=== PATIENT | female | born 1965 | race Caucasian/White ===

== ENCOUNTER 2017-12-22 07:24 | Day surgery (SDC) | payer MEDICAID ==
[~2017-12-22] VITALS: Ht 157.5 cm; Wt 65.0 kg
[~2017-12-22 07:24] MED LIST: ANAS1TAB49 PO; OMEP20CA10 PO; SODIUM CHLORIDE 0.9% 1,000 ML IV ONE
[2017-12-22] MEDS ORDERED: LIDOCAINE HCL/PF 2% 5 ML VIAL INJ ONE (12:00)
[2017-12-22] MEDS ORDERED: EPHEDrine SULFATE 50 MG/ML VIAL IM ONE (12:00)
[2017-12-22] MEDS ORDERED: PROPOFOL 1% 20 ML VIAL IVP ONE (12:00)
== END 2017-12-22 09:50 | disposition home or self-care (01) ==
LOC: SURGERY 07:24
PROVIDERS: ATTEND Internal Medicine Gastroenterology
DX: K29.50 Unspecified chronic gastritis without bleeding (principal); E78.5 Hyperlipidemia, unspecified; K21.9 Gastro-esophageal reflux disease without esophagitis; Z85.3 Personal history of malignant neoplasm of breast; Z79.899 Other long term (current) drug therapy; Z98.890 Other specified postprocedural states
CPT/HCPCS: 43239; 88305; 88312; C1769; J2704; J3490 ×2; J7030

== ENCOUNTER 2018-10-07 13:42 | Emergency (ER) | payer MEDICAID ==
[~2018-10-07] VITALS: Ht 157.5 cm; Wt 68.2 kg
[~2018-10-07 13:42] MED LIST changes: -ANAS1TAB49 PO; +ANAS1TAB50 PO; -SODIUM CHLORIDE 0.9% 1,000 ML IV ONE
[2018-10-07 13:44] VITALS: BP 132/78
[2018-10-07] MEDS ORDERED: KETOROLAC TROMETHAMINE 30 MG/ML VIAL IM ONE (14:15)
[2018-10-07] MEDS ORDERED: LIDOCAINE 5% TRANSDERMAL PATCH TD ONE (14:15)
[2018-10-07] MEDS ORDERED: CYCLOBENZAPRINE HCL 10 MG TABLET PO ONE (14:15)
== END 2018-10-07 15:12 | disposition home or self-care (01) ==
LOC: EMS 13:43
DX: S39.012A Strain of muscle, fascia and tendon of lower back, initial encounter (principal); S16.1XXA Strain of muscle, fascia and tendon at neck level, initial encounter; Z85.3 Personal history of malignant neoplasm of breast; Z79.899 Other long term (current) drug therapy; V49.9XXA Car occupant (driver) (passenger) injured in unspecified traffic accident, initial encounter; Y93.89 Activity, other specified; Y92.488 Other paved roadways as the place of occurrence of the external cause; Y99.8 Other external cause status
CPT/HCPCS: 96372; 99283; J1885